=== PATIENT | male | born 1965 | race Caucasian/White ===

== ENCOUNTER 2022-09-17 03:31 | Emergency (ER) | payer BC ==
[2022-09-17 03:35] VITALS: BP 164/87
[2022-09-17] MEDS ORDERED: ORPHENADRINE 60 MG/2 ML (NORFLEX) AMP (ED ONLY) IM STA (03:45)
--- NOTE | 2022-09-17 03:45 | ED Upper Extremity ---
General Chief Complaint: Upper Extremity Stated Complaint: L SHOULDER SPASMS/PAIN FOR A MONTH Nursing Triage Note: Patient ambulatory to room FS02 c/o left arm spasms. Patient states this has been going on "for awhile." Patient states he is scheduled for an MRI in [facility] on Monday. "Tonight is the worst it's ever got." Patient took ibuprofen approx 0230 and "it seemed to help a little." History of Present Illness Date Seen by Provider: Sep 17, 2022 Time Seen by Provider: 03:45 Initial Comments 57-year-old male presents with left shoulder pain. He feels like he is having spasm. Patient reports he has been "going on for quite a while" patient has been evaluated for previously. He has a MRI scheduled in [place] in 2 days. Reports that tonight his worst is ever been. He took an ibuprofen approximately an hour ago and reports that it seems to help. Patient has no new injuries. Allergies and Home Medications Allergies Coded Allergies: meloxicam (Verified Allergy, Unknown, 09/17/22) Patient Home Medication List Home Medication List Reviewed: Yes Review of Systems Constitutional: see HPI EENTM: no symptoms reported Respiratory: no symptoms reported Cardiovascular: no symptoms reported Gastrointestinal: no symptoms reported Genitourinary: no symptoms reported Musculoskeletal: see HPI Skin: no symptoms reported Past [id number] Hx Patient Social History Tobacco Use?: No Substance use?: No Alcohol Use?: Yes Alcohol Frequency: Several times a month Physical Exam Vital Signs Vital Signs - First Documented 09/17/22 03:35 Temp 36.4 Pulse 71 Resp 18 B/P (MAP) 164/87 (112) Pulse Ox 100 O2 Delivery Room Air Capillary Refill : Less Than 3 Seconds Height, Weight, BMI Height: '" Weight: lbs. oz. kg; BMI Method: General Appearance: WD/WN, no apparent distress Cardiovascular: normal peripheral pulses, regular rate, rhythm Respiratory: lungs clear, normal breath sounds Shoulder: pain Progress/Results/Core Measures Results/Orders Vital Signs/I&O 09/17/22 03:35 Temp 36.4 Pulse 71 Resp 18 B/P (MAP) 164/87 (112) Pulse Ox 100 O2 Delivery Room Air Blood Pressure Mean: 112 Progress Progress Note : Progress Note Patient with chronic left shoulder pain. I will give him a shot of Norflex to help with the spasm. I will prescribe him a couple Flexeril to get him through the weekend. He can follow-up with a primary care provider or intensive care specialist in 2 days on Monday for any further pain management. Departure Impression Primary Impression: Chronic left shoulder pain Disposition: HOME, SELF-CARE Condition: Stable Departure-Patient Inst. Referrals: RONALD ZUÑIGA APRN (PCP/Family) Primary Care Physician Patient Instructions: Shoulder Pain ED Add. Discharge Instructions: 4% topical lidocaine with menthol, cream gel or patch use as directed on package as needed for pain. Voltaren/diclofenac cream or gel, use as directed on package as needed for pain. Continue alternating Tylenol and ibuprofen. Follow-up with your primary care provider or intensive care specialist on Monday if further pain management is needed. All discharge instructions reviewed with patient and/or family. Voiced understanding. Scripts Cyclobenzaprine HCl (Cyclobenzaprine HCl) 10 Mg Tablet 10 MG PO Q8H PRN for SPASMS, #5 TAB 0 Refills Prov: BELLA HEBERT DO 09/17/22 BELLA HEBERT DO Sep 17, 2022 03:45
[2022-09-17] MEDS ORDERED: CYCL10TA25 PO (03:50)
== END 2022-09-17 03:55 | disposition home or self-care (01) ==
LOC: EDUNIT# 03:31 → ER FS 03:33
DX: M25.512 Pain in left shoulder (principal); G89.29 Other chronic pain
CPT/HCPCS: 96372; 99284

== ENCOUNTER → 2022-09-19 | Outpatient (CLI) | payer BC ==
[~2022-09-19] MED LIST: CYCL10TA25 PO
--- NOTE | 2022-09-19 11:36 | Diagnostic Imaging Report ---
MRI LT UPPER EXT JOINT W/O Technique: Multiplanar, multisequence MR imaging of the left shoulder was performed without contrast. Comparison: None available. Indication: Left shoulder pain Findings: Rotator cuff: Supraspinatus is intact. Focal low-grade partial-thickness interstitial tear of the anterior aspect of infraspinatus. Teres minor and subscapularis are intact. No rotator cuff muscle atrophy or edema. Glenoid labrum: Abnormal signal within the superior and anterior labrum is likely due to nondisplaced labral tear. Long head of biceps: Long head of biceps is normally positioned within the bicipital groove. The intracapsular segment is intact. Bones and cartilage: Humeral head is normal in morphology without fracture or focal osseous lesion. No glenohumeral chondromalacia. 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 Soft tissues: No glenohumeral joint effusion. Mild inflammation around the glenohumeral capsule with thickening of the inferior glenohumeral ligaments are features suggestive of adhesive capsulitis. No fluid or inflammatory like signal within the subacromial/subdeltoid space to indicate bursitis. IMPRESSION: 1. Potential tear of the anterior and superior labrum. 2. Low-grade partial-thickness interstitial tear of the infraspinatus. 3. MRI features raise possibility of adhesive capsulitis. Correlation with physical exam is advised. Dictated by: Dictated on workstation # [id number]
== END ==
LOC: RAD 09:25
PROVIDERS: ATTEND Nurse Practitioner Primary Care
DX: S43.402A Unspecified sprain of left shoulder joint, initial encounter (principal)
CPT/HCPCS: 73221